=== PATIENT | male | born 1935 | race Caucasian/White ===

== ENCOUNTER 2018-06-23 00:04 | Inpatient (IN) ==
[2018-06-23] MEDS ORDERED: SODIUM CHLORIDE 0.9% 1,000 ML IV STA (00:31)
[2018-06-23 01:08] LABS: ABG Base Excess 0.2 MMOL/L (-2.5-2.5); ABG HCO3 24.5 MMOL/L (20-26); ABG PCO2 45.3 MM HG (35-48); ABG PH 7.368 (7.35-7.45); ABG PO2 78.9 MM HG (80-95)
[2018-06-23] MEDS ORDERED: methylPREDNISolone SOD SUC 125 MG/2 ML VIAL IV STA (01:19)
[2018-06-23] MEDS ORDERED: LEVALBUTEROL 1.25 MG/3 ML NEB RESP TX STA (01:19)
[2018-06-23 01:23] LABS: Basophils % 0.2 % (0.0-0.8); Eosinophils % 0.3 % (0.00-10.9); Hematocrit 45.6 VOL% (42.0-52.0); Hemoglobin 15.8 GM/DL (14.0-18.0); Immature Granulocytes % 0.4 %; Immature Granulocytes Absolute 0.04 #; Lymphocytes # 0.7 10*3/uL (1.4-4.0); Lymphocytes % 7.8 % (21.2-54.2); Mean Corpuscular HGB Conc 34.6 GM/DL (32-36); Mean Corpuscular Hemoglobin 32 PG (27-34); Mean Corpuscular Volume 92.7 FL (87-102); Mean Platelet Volume 12.4 FL (9.6-12.0); Monocytes # 0.9 10*3/uL (0.11-0.8); Monocytes % 9.1 % (1.7-12.7); Neutrophils # 7.8 10*3/uL (1.4-7.4); Neutrophils % 82.2 % (38.7-73.9); Platelet Count 107 T/CUMM (130-400); Red Blood Count 4.92 MC/CUMM (3.8-5.5); Red Cell Distribution Width 14.6 % (9.3-17.3); White Blood Count 9.4 T/CUMM (4-12)
[2018-06-23 01:30] LABS: INR 1.1; PT Patient Result 11.2 SECS
[2018-06-23 01:44] LABS: Bilirubin,Total 2.3 MG/DL (0.2-1.0); Calcium 9.4 MG/DL (8.5-10.1); Osmolality,Calculated 281.8 MOS/KG (273-304); Potassium 4.7 MMOL/L (3.5-5.1); Total Protein 6.9 G/DL (6.4-8.3)
[2018-06-23 04:02] LABS: Apearance,Urine CLEAR (Clear); Bacteria,Urine Few /HPF (Few); Bilirubin,Urine Negative (Negative); Blood, Urine Negative (Negative); Glucose,Urine (UA) 50 mg/dL (Negative); Ketones,Urine 5 mg/dL (Negative); Mucus,Urine Occasional /LPF (Occasional); Nitrite,Urine Negative (Negative); Protein,Urine 100 MG/DL; RBC,Urine 3 /HPF (0-4); Squamous Epithelial Cell,Urine Occasional /HPF (0-10); Urine Color Amber (Yellow); Urine Specific Gravity 1.024 (1.001-1.035); WBC,Urine 2 /HPF (0-6)
[2018-06-23] MEDS ORDERED: PIPERACILLIN/TAZOBACTAM 3,375 MG in SODIUM CHLORIDE 0.9% 100 ML IV ONE (04:13)
[2018-06-23] MEDS ORDERED: cefTRIAXone 1,000 MG in SODIUM CHLORIDE 0.9% 100 ML IV STA (05:15)
[2018-06-23] MEDS ORDERED: cefTRIAXone 1,000 MG VIAL ONE (05:30)
[2018-06-23] MEDS ORDERED: cefTRIAXone 1,000 MG in SYRINGE 1 EACH IV STA (05:47)
[2018-06-23] MEDS ORDERED: ONDANSETRON 4 MG/2 ML VIAL IV PRN (06:02)
[2018-06-23] MEDS: SODIUM CHLORIDE 0.9% 1,000 ML IV SCH ×2 (09:10→22:40)
[2018-06-23] MEDS: PIPERACILLIN/TAZOBACTAM 3,375 MG in SODIUM CHLORIDE 0.9% 100 ML IV SCH ×2 (09:10→20:30)
[2018-06-23] MEDS ORDERED: FUROSEMIDE 20 MG/2 ML VIAL IV ONE (11:10)
[2018-06-23] MEDS: ALBUTEROL/IPRATROPIUM 3 ML NEB RESP TX SCH ×2 (19:46→23:01)
[2018-06-24] MEDS: ALBUTEROL/IPRATROPIUM 3 ML NEB RESP TX SCH ×6 (03:31→18:57)
[2018-06-24 05:15] LABS: Basophils % 0.1 % (0.0-0.8); Hematocrit 42.8 VOL% (42.0-52.0); Hemoglobin 14.5 GM/DL (14.0-18.0); Immature Granulocytes % 0.4 %; Immature Granulocytes Absolute 0.04 #; Lymphocytes # 0.5 10*3/uL (1.4-4.0); Lymphocytes % 5.1 % (21.2-54.2); Mean Corpuscular HGB Conc 33.9 GM/DL (32-36); Mean Corpuscular Hemoglobin 32 PG (27-34); Mean Corpuscular Volume 93.7 FL (87-102); Mean Platelet Volume 12.3 FL (9.6-12.0); Monocytes # 0.6 10*3/uL (0.11-0.8); Monocytes % 6.3 % (1.7-12.7); Neutrophils # 8.8 10*3/uL (1.4-7.4); Neutrophils % 88.1 % (38.7-73.9); Platelet Count 111 T/CUMM (130-400); Red Blood Count 4.57 MC/CUMM (3.8-5.5)
[2018-06-24 05:34] LABS: Albumin 2.6 G/DL (3.4-5.0); Bilirubin,Total 1.4 MG/DL (0.2-1.0); Calcium 9.1 MG/DL (8.5-10.1); Potassium 4.3 MMOL/L (3.5-5.1); Total Protein 6.4 G/DL (6.4-8.3)
[2018-06-24 05:49] LABS: Microcytosis Slight; Ovalocytes Slight; Platelet Estimate Decreased
[2018-06-24] MEDS: SODIUM CHLORIDE 0.9% 1,000 ML IV SCH ×4 (06:43→21:21)
[2018-06-24] MEDS: PIPERACILLIN/TAZOBACTAM 3,375 MG in SODIUM CHLORIDE 0.9% 100 ML IV SCH ×3 (06:50→23:35)
[2018-06-24] MEDS ORDERED: GLUCAGON 1 MG VIAL IM PRN (11:52)
[2018-06-24] MEDS ORDERED: DEXTROSE 50% 25 GM/50 ML VIAL IV PRN (11:52)
[2018-06-24] MEDS: INSULIN LISPRO 100 UNIT/ML SUBCUT SCH ×2 (17:49→21:22)
[2018-06-24] MEDS: MYCOPHENOLATE MOFETIL 250 MG CAPSULE PO SCH (21:24)
[2018-06-24] MEDS: cycloSPORINE 25 MG CAPSULE PO SCH (21:24)
[2018-06-25] MEDS: ALBUTEROL/IPRATROPIUM 3 ML NEB RESP TX SCH ×7 (00:21→23:59)
[2018-06-25] MEDS ORDERED: AMIODARONE INJ 150 MG in DEXTROSE 5% 100 ML IV ONE ×2 (03:09→04:30)
[2018-06-25] MEDS ORDERED: ENOXAPARIN 60 MG/0.6 ML SYRINGE SUBCUT SCH (03:30)
[2018-06-25] MEDS ORDERED: AMIODARONE INJ 450 MG in DEXTROSE 5% 241 ML IV SCH (03:30)
[2018-06-25 05:23] LABS: Basophils % 0.1 % (0.0-0.8); Eosinophils % 0.2 % (0.00-10.9); Hematocrit 45.4 VOL% (42.0-52.0); Hemoglobin 14.7 GM/DL (14.0-18.0); Immature Granulocytes % 0.5 %; Immature Granulocytes Absolute 0.04 #; Lymphocytes # 0.6 10*3/uL (1.4-4.0); Lymphocytes % 7.7 % (21.2-54.2); Mean Corpuscular HGB Conc 32.4 GM/DL (32-36); Mean Corpuscular Hemoglobin 32 PG (27-34); Mean Corpuscular Volume 99.3 FL (87-102); Monocytes # 0.7 10*3/uL (0.11-0.8); Monocytes % 9.1 % (1.7-12.7); Neutrophils # 6.7 10*3/uL (1.4-7.4); Neutrophils % 82.4 % (38.7-73.9); Platelet Count 102 T/CUMM (130-400); Red Blood Count 4.57 MC/CUMM (3.8-5.5); Red Cell Distribution Width 15.6 % (9.3-17.3); White Blood Count 8.1 T/CUMM (4-12)
[2018-06-25 05:36] LABS: Calcium 8.9 MG/DL (8.5-10.1); Osmolality,Calculated 283.5 MOS/KG (273-304); Potassium 4.1 MMOL/L (3.5-5.1)
[2018-06-25] MEDS: INSULIN LISPRO 100 UNIT/ML SUBCUT SCH ×4 (07:51→21:00)
[2018-06-25] MEDS: PIPERACILLIN/TAZOBACTAM 3,375 MG in SODIUM CHLORIDE 0.9% 100 ML IV SCH ×3 (07:51→23:24)
[2018-06-25] MEDS: predniSONE 5 MG TABLET PO SCH (08:29)
[2018-06-25] MEDS: cycloSPORINE 25 MG CAPSULE PO SCH ×2 (08:29→21:00)
[2018-06-25] MEDS: MYCOPHENOLATE MOFETIL 250 MG CAPSULE PO SCH ×2 (08:29→21:00)
[2018-06-25] MEDS: SODIUM CHLORIDE 0.9% 1,000 ML IV SCH ×3 (08:29→23:08)
[2018-06-25] MEDS: AMIODARONE INJ 450 MG in DEXTROSE 5% 241 ML IV SCH (16:13)
[2018-06-25] MEDS: MORPHINE 4 MG/1 ML VIAL IV PRN (17:14)
[2018-06-26] MEDS ORDERED: METOPROLOL TARTRATE 5 MG/5 ML VIAL IV ONE (01:50)
[2018-06-26] MEDS: AMIODARONE INJ 450 MG in DEXTROSE 5% 241 ML IV SCH (02:13)
[2018-06-26] MEDS: SODIUM CHLORIDE 0.9% 1,000 ML IV SCH ×3 (03:17→18:14)
[2018-06-26 06:15] LABS: Basophils % 0.1 % (0.0-0.8); Eosinophils # 0.1 10*3/uL (0.0-0.87); Eosinophils % 1.3 % (0.00-10.9); Hematocrit 43.5 VOL% (42.0-52.0); Hemoglobin 14.3 GM/DL (14.0-18.0); Immature Granulocytes % 0.3 %; Immature Granulocytes Absolute 0.02 #; Lymphocytes # 0.5 10*3/uL (1.4-4.0); Lymphocytes % 7.5 % (21.2-54.2); Mean Corpuscular HGB Conc 32.9 GM/DL (32-36); Mean Corpuscular Hemoglobin 32 PG (27-34); Mean Corpuscular Volume 97.5 FL (87-102); Mean Platelet Volume 11.7 FL (9.6-12.0); Monocytes # 0.6 10*3/uL (0.11-0.8); Monocytes % 8.9 % (1.7-12.7); Neutrophils # 5.7 10*3/uL (1.4-7.4); Neutrophils % 81.9 % (38.7-73.9); Platelet Count 97 T/CUMM (130-400); Red Blood Count 4.46 MC/CUMM (3.8-5.5); Red Cell Distribution Width 15.4 % (9.3-17.3); White Blood Count 6.9 T/CUMM (4-12)
[2018-06-26 06:26] LABS: INR 1.1; PT Patient Result 11.6 SECS
[2018-06-26 06:31] LABS: Calcium 8.4 MG/DL (8.5-10.1); Osmolality,Calculated 284.3 MOS/KG (273-304); Potassium 4.1 MMOL/L (3.5-5.1)
[2018-06-26] MEDS: ALBUTEROL/IPRATROPIUM 3 ML NEB RESP TX SCH ×5 (06:49→22:45)
[2018-06-26 06:50] LABS: Platelet Estimate Decreased
[2018-06-26] MEDS: PIPERACILLIN/TAZOBACTAM 3,375 MG in SODIUM CHLORIDE 0.9% 100 ML IV SCH ×2 (07:11→15:57)
[2018-06-26] MEDS ORDERED: ETOMIDATE 20 MG/10 ML VIAL IV ONE (08:30)
[2018-06-26] MEDS ORDERED: DILTIAZEM 50 MG/10 ML VIAL IV ONE ×2 (08:30→10:30)
[2018-06-26] MEDS ORDERED: LIDOCAINE 100 MG/5 ML SYRINGE ONE (08:30)
[2018-06-26] MEDS ORDERED: MAGNESIUM SULF RIDER 4 GM in PREMIX 1 EACH IV PRN (08:36)
[2018-06-26] MEDS: MORPHINE 4 MG/1 ML VIAL IV PRN ×4 (08:39→21:59)
[2018-06-26] MEDS: cycloSPORINE 25 MG CAPSULE PO SCH ×2 (08:40→20:08)
[2018-06-26] MEDS: INSULIN LISPRO 100 UNIT/ML SUBCUT SCH ×4 (08:40→18:12)
[2018-06-26] MEDS: predniSONE 5 MG TABLET PO SCH (08:40)
[2018-06-26] MEDS: MYCOPHENOLATE MOFETIL 250 MG CAPSULE PO SCH ×2 (08:40→20:07)
[2018-06-26] MEDS ORDERED: ALBUTEROL 2.5 MG/3 ML NEB RESP TX STA (09:54)
[2018-06-26] MEDS ORDERED: LEVALBUTEROL 1.25 MG/3 ML NEB RESP TX STA (10:07)
[2018-06-26] MEDS: DILTIAZEM INJ 100 MG in SODIUM CHLORIDE 0.9% 100 ML IV SCH (12:18)
[2018-06-26] MEDS: DILTIAZEM 60 MG TABLET PO SCH ×3 (14:39→20:08)
[2018-06-26] MEDS: MAGNESIUM SULF RIDER 2 GM in PREMIX 1 EACH IV PRN (18:12)
[2018-06-27] MEDS: PIPERACILLIN/TAZOBACTAM 3,375 MG in SODIUM CHLORIDE 0.9% 100 ML IV SCH ×3 (01:30→18:47)
[2018-06-27] MEDS: MORPHINE 4 MG/1 ML VIAL IV PRN ×4 (02:00→19:23)
[2018-06-27] MEDS: ALBUTEROL/IPRATROPIUM 3 ML NEB RESP TX SCH ×7 (02:31→23:51)
[2018-06-27] MEDS: SODIUM CHLORIDE 0.9% 1,000 ML IV SCH ×5 (03:02→23:51)
[2018-06-27] MEDS: INSULIN LISPRO 100 UNIT/ML SUBCUT SCH ×5 (03:05→23:53)
[2018-06-27] MEDS: cycloSPORINE 25 MG CAPSULE PO SCH ×3 (09:09→21:32)
[2018-06-27] MEDS: DILTIAZEM 60 MG TABLET PO SCH (09:10)
[2018-06-27] MEDS: MYCOPHENOLATE MOFETIL 250 MG CAPSULE PO SCH ×2 (09:11→20:57)
[2018-06-27] MEDS: predniSONE 5 MG TABLET PO SCH (09:11)
[2018-06-27] MEDS ORDERED: POTASSIUM CHLORIDE RIDER 10 MEQ in PREMIX 1 EACH IV PRN (10:31)
[2018-06-27] MEDS: DILTIAZEM 90 MG TABLET PO SCH ×3 (13:07→20:58)
[2018-06-27] MEDS: DILTIAZEM INJ 100 MG in SODIUM CHLORIDE 0.9% 100 ML IV SCH (18:00)
[2018-06-27] MEDS: guaiFENesin 200 MG/10 ML UDCUP PEG SCH ×2 (18:45→20:57)
[2018-06-27] MEDS ORDERED: MORPHINE 4 MG/1 ML VIAL IV PRN (20:33)
[2018-06-28] MEDS ORDERED: NALOXONE 0.4 MG/ML VIAL ONE (00:24)
[2018-06-28] MEDS ORDERED: NALOXONE 0.4 MG/ML VIAL IV PRN (00:41)
[2018-06-28] MEDS: PIPERACILLIN/TAZOBACTAM 3,375 MG in SODIUM CHLORIDE 0.9% 100 ML IV SCH ×3 (01:38→17:15)
[2018-06-28] MEDS: DILTIAZEM INJ 100 MG in SODIUM CHLORIDE 0.9% 100 ML IV SCH ×2 (02:55→18:48)
[2018-06-28] MEDS: ALBUTEROL/IPRATROPIUM 3 ML NEB RESP TX SCH ×4 (03:00→15:50)
[2018-06-28 03:20] LABS: Basophils % 0.1 % (0.0-0.8); Eosinophils # 0.1 10*3/uL (0.0-0.87); Eosinophils % 0.4 % (0.00-10.9); Hematocrit 37.3 VOL% (42.0-52.0); Hemoglobin 12.7 GM/DL (14.0-18.0); Immature Granulocytes % 0.7 %; Immature Granulocytes Absolute 0.08 #; Lymphocytes # 0.3 10*3/uL (1.4-4.0); Lymphocytes % 2.5 % (21.2-54.2); Mean Corpuscular Hemoglobin 32 PG (27-34); Mean Corpuscular Volume 92.8 FL (87-102); Mean Platelet Volume 11.4 FL (9.6-12.0); Monocytes # 0.6 10*3/uL (0.11-0.8); Monocytes % 4.9 % (1.7-12.7); Neutrophils # 11.1 10*3/uL (1.4-7.4); Neutrophils % 91.4 % (38.7-73.9); Platelet Count 114 T/CUMM (130-400); Red Blood Count 4.02 MC/CUMM (3.8-5.5); Red Cell Distribution Width 14.8 % (9.3-17.3); White Blood Count 12.2 T/CUMM (4-12)
[2018-06-28 03:45] LABS: Calcium 8.2 MG/DL (8.5-10.1); Osmolality,Calculated 278.7 MOS/KG (273-304)
[2018-06-28 03:48] LABS: Band Neutrophils 1 % (0-10); Lymphocytes 4 % (20-55); Platelet Estimate Decreased; Polychromasia Few; Segmented Neutrophils 91 % (50-85); Total Cells Counted 100
[2018-06-28] MEDS: SODIUM CHLORIDE 0.9% 1,000 ML IV SCH ×2 (04:08→11:14)
[2018-06-28] MEDS: MAGNESIUM SULF RIDER 2 GM in PREMIX 1 EACH IV PRN ×2 (04:15→05:57)
[2018-06-28] MEDS: INSULIN LISPRO 100 UNIT/ML SUBCUT SCH ×3 (06:08→17:49)
[2018-06-28] MEDS: guaiFENesin 200 MG/10 ML UDCUP PEG SCH ×2 (09:08→21:02)
[2018-06-28] MEDS: predniSONE 5 MG TABLET PO SCH (09:08)
[2018-06-28] MEDS: DILTIAZEM 90 MG TABLET PO SCH ×4 (10:45→21:02)
[2018-06-28] MEDS ORDERED: FUROSEMIDE 40 MG/4 ML VIAL IV ONE ×2 (10:53→13:45)
[2018-06-28] MEDS ORDERED: SCOPOLAMINE 1.5 MG PATCH TRANSDERM SCH (11:00)
[2018-06-28] MEDS: MYCOPHENOLATE MOFETIL 250 MG CAPSULE PO SCH ×2 (11:21→21:02)
[2018-06-28] MEDS: cycloSPORINE 25 MG CAPSULE PO SCH ×2 (11:21→21:02)
[2018-06-28] MEDS: METOPROLOL TARTRATE 25 MG TABLET PO SCH ×2 (11:25→21:02)
[2018-06-28] MEDS: CLINDAMYCIN INJ 600 MG in PREMIX 1 EACH IV SCH ×2 (14:05→22:48)
[2018-06-28] MEDS ORDERED: LORazepam 2 MG/1 ML VIAL IV PRN (16:52)
[2018-06-28] MEDS ORDERED: ALBUTEROL/IPRATROPIUM 3 ML NEB RESP TX PRN (16:54)
[2018-06-28] MEDS: methylPREDNISolone SOD SUC 125 MG/2 ML VIAL IV SCH (17:48)
[2018-06-28 19:17] VITALS: BP 147/74
[2018-06-28] MEDS: MORPHINE 4 MG/1 ML VIAL IV PRN ×2 (20:25→23:03)
[2018-06-29] MEDS: INSULIN LISPRO 100 UNIT/ML SUBCUT SCH ×2 (00:07→05:16)
[2018-06-29] MEDS: PIPERACILLIN/TAZOBACTAM 3,375 MG in SODIUM CHLORIDE 0.9% 100 ML IV SCH (01:22)
[2018-06-29] MEDS: methylPREDNISolone SOD SUC 125 MG/2 ML VIAL IV SCH (01:22)
[2018-06-29 03:51] LABS: Osmolality,Calculated 275.8 MOS/KG (273-304); Potassium 3.7 MMOL/L (3.5-5.1); Prealbumin 13.4 MG/DL (20-40)
[2018-06-29] MEDS: MORPHINE 4 MG/1 ML VIAL IV PRN ×3 (04:02→06:10)
[2018-06-29] MEDS: CLINDAMYCIN INJ 600 MG in PREMIX 1 EACH IV SCH (06:10)
[2018-06-29] MEDS ORDERED: FUROSEMIDE 40 MG/4 ML VIAL IV SCH (08:00)
== END 2018-06-29 07:26 | disposition expired | DRG 177 ==
LOC: EDUNIT# → N.ED 00:04 → N.EDINP 06:02 → SUATTDRO 06:02 → N.3E 06:35 → N.TELES 06-25 04:02 → N.ICU 06-26 11:14
PROVIDERS: ADMIT Internal Medicine; ATTEND Internal Medicine
PROC: EGDWPEG (ICD-10-PCS; 2018-06-26 09:50)